=== PATIENT | male | born 1975 | race Caucasian/White ===

== ENCOUNTER → 2023-02-16 14:30 | Outpatient (BNVA) | payer OTHER, SELFPAY | PROVIDERS: Visit Provider Podiatrist Foot & Ankle Surgery | DX: M79.671 Pain in right foot (principal); M79.672 Pain in left foot; M67.88 Other specified disorders of synovium and tendon, other site; M77.31 Calcaneal spur, right foot; M77.32 Calcaneal spur, left foot | CPT/HCPCS: 73630 ==

== ENCOUNTER 2023-03-15 09:59 | Outpatient (CLI) | payer OTHER, SELFPAY ==
--- NOTE | 2023-03-15 10:15 | MR_ITS ---
WS: [id number] MRI RIGHT ANKLE WITHOUT CONTRAST. COMPARISON: Radiograph 02/16/2023 Multiplanar, multisequence imaging is performed without contrast. There is very minimal thickening and slight bulging of the normal anterior contour of the Achilles te ndon. AP diameter is 8 mm with slight increased intermediate signal in the distal 4.2 cm of the Achil les tendon. There is enthesopathy at the Achilles tendon attachment to the calcaneus. There is also m ild Janny syndrome with minimal retrocalcaneal bursitis. There is a small amount of edema in the posterior calcaneus. Anterior calcaneal process is normal. Ta sasha is normal. No osteochondral lesions along the talar dome. IMPRESSION: 1. Very mild distal Achilles tendinopathy. 2. Slight retrocalcaneal bursitis and distal Achilles enthesopathy. 3. Mild Janny syndrome. 4. There is minimal amount of edema in the posterior calcaneal process.
== END 2023-03-15 10:00 | disposition home or self-care (01) ==
LOC: RAD 09:59
PROVIDERS: Visit Provider Podiatrist Foot & Ankle Surgery
DX: M67.88 Other specified disorders of synovium and tendon, other site (principal); M71.571 Other bursitis, not elsewhere classified, right ankle and foot
CPT/HCPCS: 73721

== ENCOUNTER 2023-04-04 06:00 | Outpatient (RCR) | payer OTHER, SELFPAY | END 2023-04-05 23:59 | disposition home or self-care (01) | LOC: MPT 06:00 | PROVIDERS: Visit Provider Podiatrist Foot & Ankle Surgery | DX: M76.61 Achilles tendinitis, right leg (principal); M76.62 Achilles tendinitis, left leg | CPT/HCPCS: 97110; 97140; 97162 ==

== ENCOUNTER 2023-04-06 06:00 | Outpatient (RCR) | payer OTHER, SELFPAY | END 2023-05-04 23:59 | disposition home or self-care (01) | LOC: MPT 06:00 | PROVIDERS: Visit Provider Podiatrist Foot & Ankle Surgery | DX: M76.61 Achilles tendinitis, right leg (principal); M76.62 Achilles tendinitis, left leg | CPT/HCPCS: 97110; 97140 ==

== ENCOUNTER 2023-05-05 06:00 | Outpatient (RCR) | payer OTHER, SELFPAY | END 2023-06-04 23:59 | disposition home or self-care (01) | LOC: MPT 06:00 | PROVIDERS: Visit Provider Podiatrist Foot & Ankle Surgery | DX: M76.61 Achilles tendinitis, right leg (principal); M76.62 Achilles tendinitis, left leg | CPT/HCPCS: 97110; 97140 ==